=== PATIENT | female | born 1930 | race Caucasian/White ===

== ENCOUNTER 2016-12-24 18:10 | Emergency (ER) | payer SELFPAY ==
[~2016-12-24] VITALS: Ht 152.4 cm; Wt 78.0 kg
[2016-12-24 18:11] VITALS: Ht 152.4 cm; Wt 78.0 kg
[2016-12-24] MEDS ORDERED: AZITHROMYCIN 250 MG TAB PO ONE (19:30)
[2016-12-24] MEDS ORDERED: AZIT250T94 PO (19:59)
[2016-12-24] MEDS ORDERED: BENZ100C70 PO (19:59)
--- NOTE | 2016-12-24 20:00 | ERD ---
ER Documentation Chief Complaint Date/Time DATE: 12/24/16 TIME: 20:00 Chief Complaint cough,chest congestion,sob for mos HPI Patient is a 86-year-old female with hypertension who presents with cough. The patient says that every year around this time she gets an allergy and cough. She feels something in her throat. She has had a cough productive of phlegm for the past 2 weeks. She is speaking in full sentences. She feels anxious. She tried Robitussin. She has no fevers. She does not currently have a primary doctor. Upon review of old medical records this is the patient's first visit to the emergency department. ROS All systems reviewed and are negative except as per history of present illness. Medications Home Meds Active Scripts Benzonatate* (Tessalon Perle*) 100 Mg Capsule, 100 MG PO Q8H Y for COUGH, #30 CAP Prov:TERESA RODRIGUEZ MD 12/24/16 Azithromycin* (Zithromax*) 250 Mg Tablet, 250 MG PO DAILY for 4 Days, TAB Prov:TERESA RODRIGUEZ MD 12/24/16 Allergies Allergies: Coded Allergies: No Known Allergy (Unverified , 12/24/16) PMhx/Soc Medical and Surgical Hx: pt denies Surgical Hx Hx Cardiac Disorders: Yes (HTN) Hx Miscellaneous Medical Probl: Yes (ARTHRITIS ) Hx Alcohol Use: No Hx Substance Use: No Hx Tobacco Use: No Smoking Status: Never smoker FmHx Family History: No diabetes Physical Exam Vitals Vital Signs Date Time Temp Pulse Resp B/P Pulse Ox O2 Delivery O2 Flow Rate FiO2 12/24/16 20:37 78 17 140/78 100 Room Air 12/24/16 19:39 93 17 149/89 100 Room Air 12/24/16 18:11 99.6 114 18 121/96 99 Physical Exam Const: No acute distress Head: Atraumatic Eyes: Normal Conjunctiva ENT: Normal External Ears, Nose and Mouth. Neck: Full range of motion..~ No meningismus. Resp: Clear to auscultation bilaterally Cardio: Regular rate and rhythm, no murmurs Abd: Soft, non tender, non distended. Normal bowel sounds Skin: No petechiae or rashes Back: No midline or flank tenderness Ext: No cyanosis, or edema Neur: Awake and alert Psych: Normal Mood and Affect Results 24 hrs Current Medications Medications (Trade) Dose Ordered Sig/Koki Route PRN Reason Start Time Stop Time Status Last Admin Dose Admin Azithromycin (Zithromax) 500 mg ONCE ONCE PO 12/24/16 19:30 12/24/16 19:31 DC 12/24/16 19:42 Procedures/MDM EKG read by me: Rate/Rhythm: Sinus tachycardia rate of 112 Intervals: Normal Impression: Sinus tachycardia without ischemia Chest X-ray 1V Interpreted by me: Soft Tissue: No acute abnormalities Bones: No acute abnormalities Mediastinum/Cardiac Silhouette/Lungs: No acute abnormalities Patient is an 86-year-old female who presents with cough with productive phlegm. She has had the symptoms for 2 weeks. EKG shows tachycardia but no signs of acute ischemia. Chest x-ray shows no pneumonia or pneumothorax. At this point I doubt pulmonary embolism, aortic dissection, or acute coronary syndrome. I believe outpatient management is appropriate with a prescription for Zithromax and Tessalon Perles. The first dose of Zithromax was given in the emergency department. The patient can return sooner for any worsening symptoms but she should follow-up with a primary doctor the local clinics within 24-48 hours for reevaluation. Departure Diagnosis: Primary Impression: Bronchitis Additional Impression: Cough Condition: Fair Patient Instructions: Bronchitis, Antiobiotic Treatment (Adult) Referrals: [facility] ted se sorensen hecho un examen mdico de control que le indica que no est en sharon condicin que requiera tratamiento urgente en el Departamento de Emergencia. Un estudio ms profundo y el tratamiento de young condicin pueden esperar sin ningn riesgo hasta que usted sea atendida/o en el consultorio de young mdico o sharon cl shey. Es responsabilidad suya arreglar sharon crow para el seguimiento del cecilia. MANEJO DE CONDICIONES NO URGENTES EN EL FUTURO 1) Si usted tiene un mdico de atencin primaria: Usted debera llamar a young mdico de atencin primaria antes de venir al departamento de emergencia. Despus de las horas de consultorio, young doctor o young asociado/a est disponible por telfono. El mdico o enfermero de mercedes en el servicio telefnico puede asesorarle por alla medio para atender el problema, o cecilia contrario se puede programar sharon crow. 2) Si usted no tiene un mdico de atencin primaria: Llame al mdico o clnica de referencia que aparece abajo amrik las horas de consultorio para hacer sharon crow para que le vean. CLINICAS: [place] [id number] [phone] [facility] [phone] [id number] [facility] [[email or web address] [phone] [id number] [facility]. [place] [id number] [phone] [facility]. [place] [id number] [phone] [facility] [phone] [address] Additional Instructions: Llame al doctor MAANA y bethany sharon CROW PARA DENTRO DE 1-2 SEGUNDO.Dgale a la secretaria que nosotros le instruimos hacer esta crow.Avise o llame si young condicin se empeora antes de la crow. Regresa aqui si peor o no mejor. TERESA RODRIGUEZ MD Dec 24, 2016 20:00
[2016-12-24 20:37] VITALS: BP 140/78; PULSE 78; RESP 17
--- NOTE | 2016-12-25 09:14 | RADRPT ---
PROCEDURE: XR Chest. CLINICAL INDICATION: Cough. TECHNIQUE: Single frontal view. COMPARISON: None. FINDINGS: The lungs are clear. The heart is enlarged. There is calcification in the aorta consistent with atherosclerosis. There is no pleural effusion. There is no pneumothorax. IMPRESSION: 1. Cardiomegaly and atherosclerosis. 2. Clear lungs. RPTAT: QQ .Sridhar Jimenes MD, MD Date Time Electronically viewed and signed by .Sridhar Jimenes MD, on 12/24/2016 19:59 .R/
== END 2016-12-24 20:38 | disposition home or self-care (01) ==
LOC: E/R 18:10
DX: J20.9 Acute bronchitis, unspecified (principal); I10 Essential (primary) hypertension
CPT/HCPCS: 71010; 93005